=== PATIENT | male | born 1975 | race Hispanic/Latino ===

== ENCOUNTER 2016-12-12 21:09 | Emergency (ER) | payer MEDICAID ==
[2016-12-12 21:10] VITALS: BMI 37.3
[2016-12-12 21:23] VITALS: BP 135/89; PULSE 101; RESP 16; TEMP 98.1; O2SAT 98
[2016-12-12] MEDS ORDERED: Naproxen 550 mg Tab PO STA (22:09)
--- NOTE | 2016-12-12 22:26 | ED PDOC ---
Arrival/HPI - General Chief Complaint: Lower Extremity Problem/Injury Time Seen by Provider: 12/12/16 21:27 Historian: Patient - History of Present Illness Narrative History of Present Illness (Text): 12/12/16 22:06 41 year old male, with no significant past medical history, who presents to the Emergency department complaining of atraumatic right foot pain to the bottom of his foot. Patient states pain is worse with walking or bearing weight on the extremity. Patient states he has not experienced similar pain previously. Patient denies any fever, chills, joint pain, numbness/weakness/tingling in the extremity, back pain, neck pain, headache, dizziness, or any other complaints. PMD [place] Symptom Onset: Gradual Symptom Course: Unchanged Activities at Onset: Light Context: Standing, Walking, Home Past Medical History - Provider Review Nursing Documentation Reviewed: Yes - Infectious Disease Hx of Infectious Diseases: None - Past Medical History Past Medical History: No Previous - Cardiac Hx Pacemaker: No - Pulmonary Hx Respiratory Disorders: Yes Hx Bronchitis: Yes Hx Pneumonia: Yes - Neurological Hx Paralysis: No - HEENT Hx HEENT Disorder: No - Renal Hx Renal Disorder: No - Endocrine/Metabolic Hx Endocrine Disorders: No - Hematological/Oncological Hx Blood Transfusions: No Hx Blood Transfusion Reaction: No - Integumentary Hx Dermatological Disorder: No - Musculoskeletal/Rheumatological Hx Musculoskeletal Disorders: Yes - Gastrointestinal Hx Gastrointestinal Disorders: Yes (PERIRECTAL ABSCESS) Other/Comment: Gallstones - Genitourinary/Gynecological Hx Genitourinary Disorders: No - Psychiatric Hx Emotional Abuse: No Hx Physical Abuse: No Hx Substance Use: No - Past Surgical History Past Surgical History: No Previous - Surgical History Other/Comment: anal fistula/fissure repair - Anesthesia Hx Anesthesia Reactions: No Hx Malignant Hyperthermia: No - Suicidal Assessment Feels Threatened In Home Enviroment: No Family/Social History - Physician Review Nursing Documentation Reviewed: Yes Family/Social History: Unknown Family HX Smoking Status: Never Smoked Hx Alcohol Use: No Hx Substance Use: No Hx Substance Use Treatment: No Allergies/Home Meds Allergies/Adverse Reactions: Allergies shrimp Allergy (Intermediate, Verified 07/20/16 12:46) RASH SEASONAL Allergy (Intermediate, Uncoded 07/20/16 12:46) UNKNOWN PT RECENTLY HAD ALLERGY TESTING- SHOWWED MULTIPLE REACTIONS TO MOLD, TREES Review of Systems - Physician Review All systems were reviewed & negative as marked: Yes - Review of Systems Constitutional: Normal. absent: Fevers Eyes: Normal ENT: Normal Respiratory: Normal. absent: SOB, Cough Cardiovascular: Normal. absent: Chest Pain Gastrointestinal: Normal. absent: Abdominal Pain, Diarrhea, Nausea, Vomiting Genitourinary Male: Normal. absent: Dysuria, Frequency, Hematuria, Urinary Output Changes Musculoskeletal: Other (+right foot pain). absent: Arthralgias, Back Pain, Neck Pain Skin: Normal. absent: Rash Neurological: Normal. absent: Headache, Dizziness Endocrine: Normal Hemo/Lymphatic: Normal Psychiatric: Normal Physical Exam Vital Signs Reviewed: Yes Vital Signs Temp Pulse Resp BP Pulse Ox 12/12/16 21:22 98.1 F 101 H 16 135/89 98 Temperature: Afebrile Blood Pressure: Normal Pulse: Regular Respiratory Rate: Normal Appearance: Positive for: Well-Appearing, Non-Toxic, Comfortable Pain Distress: None Mental Status: Positive for: Alert and Oriented X 3 - Systems Exam Head: Present: Atraumatic, Normocephalic Pupils: Present: PERRL Extroacular Muscles: Present: EOMI Conjunctiva: Present: Normal Mouth: Present: Moist Mucous Membranes Lower Extremity: Present: NORMAL PULSES, Normal ROM, Tenderness, Neurovascularly Intact (Tenderness to plantar aspect of right foot), Capillary Refill < 2 s. No: Edema, Swelling, Erythema, Deformity Neurological: Present: GCS=15, CN II-XII Intact, Speech Normal Skin: Present: Warm, Dry, Normal Color. No: Rashes Psychiatric: Present: Alert, Oriented x 3, Normal Insight, Normal Concentration Medical Decision Making ED Course and Treatment: 12/12/16 22:06 Impression: 41 year old male complaining of right foot pain to plantar aspect. Differential Diagnosis included but are not limited to: plantar fasciitis vs. tendonitis vs. gout Plan: -- Naproxen -- XR Right Foot -- Reassess and disposition Progress Notes: XR right foot: +heel spur, +faint soft tissue swelling to the plantar aspect of the foot and the ankle, no fracture, no dislocation, as read by PA Patient advised that official radiology read of XR is still pending and will call the patient if there is any discrepancy within 24 hours. X-ray results reviewed and discussed with the patient in great detail. Patient advised of likely diagnosis of plantar fasciitis and the need for follow-up with a transitional living specialist. Advised to rest affected foot, elevate and apply ice. Otherwise instructed to follow up with podiatry referral in 1-2 days without fail. Advised to take medication as prescribed. Return to the emergency room at any time for any new or worsening symptoms. Patient states he fully agrees with and understands discharge instructions. States that he agrees with the plan and disposition. Verbalized and repeated discharge instructions and plan. I have given the patient opportunity to ask any additional questions. - RAD Interpretation Radiology Orders: 12/12/16 22:09 FOOT RIGHT 3 VIEWS ROUTINE [RAD] Stat - Medication Orders Current Medication Orders: Discontinued Medications Naproxen (Anaprox Ds) 550 mg PO ONCE STA Stop: 12/12/16 22:10 Last Admin: 12/12/16 22:31 Dose: 550 mg - PA / DISPATCHER ELECTRIC POWER / Resident Statement MD/DO has reviewed & agrees with the documentation as recorded. - Scribe Statement The provider has reviewed the documentation as recorded by the Scribe Opal Mcgarry All medical record entries made by the Scribe were at my direction and personally dictated by me. I have reviewed the chart and agree that the record accurately reflects my personal performance of the history, physical exam, medical decision making, and the department course for this patient. I have also personally directed, reviewed, and agree with the discharge instructions and disposition. Disposition/Present on Arrival - Present on Arrival Any Indicators Present on Arrival: No History of DVT/PE: No History of Uncontrolled Diabetes: No Urinary Catheter: No History of Decub. Ulcer: No History Surgical Site Infection Following: None - Disposition Have Diagnosis and Disposition been Completed?: Yes Diagnosis: Foot pain, right, Plantar fasciitis of right foot Disposition: HOME/ ROUTINE Disposition Time: 23:00 Patient Plan: Discharge Patient Problems: Current Active Problems Problem Status Onset Foot pain, right Acute Plantar fasciitis of right foot Acute Condition: STABLE Discharge Instructions (ExitCare): Plantar Fasciitis (ED) Print Language: BULGARIAN Additional Instructions: Thank you for letting us take care of you today. You were treated for right foot pain, plantar fasciitis. The emergency medical care you received today was directed at your acute symptoms. If you were prescribed any medication, please fill it and take as directed. It may take several days for your symptoms to resolve. Return to the Emergency Department if your symptoms worsen, do not improve, or if you have any other problems. Please contact your doctor in 2 days for re-evaluation and follow up / or call one of the physicians/clinics you have been referred to that are listed on the Patient Visit Information form that is included in your discharge packet. Bring any paperwork you were given at discharge with you along with any medications you are taking to your follow up visit. Our treatment cannot replace ongoing medical care by a primary care provider (PCP) outside of the emergency department. Thank you for allowing the [facility] team to be part of your care today. Prescriptions: Naproxen 500 mg PO BID #30 tab Referrals: Loulou Traylor MD [Primary Care Provider] - Follow up with primary Forms: [employer] (Pakistani)
--- NOTE | 2016-12-13 12:23 | RAD ---
PROCEDURE: Right Foot Radiographs. HISTORY: pain COMPARISON: None. FINDINGS: BONES: Normal. No fracture. JOINTS: Normal. SOFT TISSUES: Normal. OTHER FINDINGS: None. IMPRESSION: Normal right foot radiographs.
== END 2016-12-12 23:34 | disposition home or self-care (01) ==
LOC: ED 21:09
DX: M72.2 Plantar fascial fibromatosis (principal); M79.671 Pain in right foot

== ENCOUNTER 2017-08-18 08:49 | Emergency (ER) | payer MEDICAID ==
[2017-08-18 09:34] VITALS: BMI 36.2
[2017-08-18] MEDS ORDERED: Sodium Chloride 0.9% 1,000 ML IV STA (10:03)
[2017-08-18 10:49] LABS: BASO # 0.03 K/mm3 (0.0-2.0); BASO % 0.5 % (0.0-3.0); EOS # 0.1 (0.0-0.7); GRAN # 3.16 (1.4-6.5); GRAN % 49.5 % (50.0-68.0); HEMOGLOBIN 15.5 g/dL (14.0-18.0); LYMPH # 2.4 (1.2-3.4); LYMPH % 37.5 % (22.0-35.0); MEAN CELL VOLUME 87.2 fl (80.0-105.0); MEAN CORPUSCULAR HEMOGLOBIN 31.4 pg (25.0-35.0); MEAN PLATELET VOLUME 9.7 fl (7.0-11.0); MONO # 0.7 (0.1-0.6); MONO % 10.5 % (1.0-6.0); PH,URINE 5.5 (4.7-8.0); RBC 4.94 10^6/uL (3.5-6.1); RED CELL DISTRIBUTION WIDTH 13.5 % (11.5-14.5); URINE BILIRUBIN NEGATIVE (NEGATIVE); URINE BLOOD NEGATIVE (NEGATIVE); URINE GLUCOSE (UA) NEGATIVE (NEGATIVE); URINE LEUKOCYTE ESTERASE NEGATIVE Leu/uL (NEGATIVE); URINE PROTEIN NEGATIVE mg/dL (<30 mg/dL); URINE UROBILINOGEN 0.2 E.U./dL (<1 E.U./dL); WHITE BLOOD COUNT 6.4 10^3/ul (4.5-11.0)
[2017-08-18 10:57] LABS: ALB/GLOB RATIO 1.4 (1.1-1.8); ALBUMIN 4.6 g/dL (3.0-4.8); ALT/SGPT 101 U/L (7-56); AST/SGOT 43 U/L (17-59); BLOOD UREA NITROGEN 20 mg/dL (7-21); CALCIUM 10.4 mg/dL (8.4-10.5); GFR AFRICAN-AMERICAN > 60; GFR NON-AFRICAN AMERICAN > 60; LIPASE 64 U/L (23-300)
[2017-08-18 11:03] LABS: URINE APPEARANCE CLEAR (CLEAR); URINE COLOR YELLOW (YELLOW)
--- NOTE | 2017-08-18 12:17 | CT ---
PROCEDURE: CT Abdomen and Pelvis with contrast HISTORY: Right-sided abdominal pain, 2 weeks duration. COMPARISON: None TECHNIQUE: Contrast dose: 150 cc Omnipaque 350. Radiation dose: Total exam DLP = 1184.53 mGy-cm. This CT exam was performed using one or more of the following dose reduction techniques: Automated exposure control, adjustment of the mA and/or kV according to patient size, and/or use of iterative reconstruction technique. FINDINGS: LOWER THORAX: Unremarkable. LIVER: Hepatic steatosis. No focal masses. No intrahepatic bile duct dilatation or perihepatic ascites. GALLBLADDER AND BILE DUCTS: Unremarkable. PANCREAS: Unremarkable. No gross lesion or ductal dilatation. SPLEEN: Splenomegaly. Orthogonal measurements 7.1 x 13.9 cm. ADRENALS: Unremarkable. No mass. KIDNEYS AND URETERS: Unremarkable. No hydronephrosis. No solid mass. VASCULATURE: Unremarkable. No aortic aneurysm. BOWEL: Unremarkable. No obstruction. No gross mural thickening. APPENDIX: Normal appendix. PERITONEUM: Unremarkable. No free fluid. No free air. LYMPH NODES: Unremarkable. No enlarged lymph nodes. BLADDER: Unremarkable. REPRODUCTIVE: Unremarkable. BONES: No acute fracture. OTHER FINDINGS: None. IMPRESSION: No significant or acute findings to account for/ related to the clinical presentation. Additional benign and/or incidental findings described above.
--- NOTE | 2017-08-18 15:20 | US ---
HISTORY: right sided testicular pain TECHNIQUE: Realtime sonography through the scrotum with color and doppler flow. COMPARISON: None Available. FINDINGS: RIGHT TESTICLE: Measures 2.6 x 3.2 x 5.1 cm. Normal echotexture and flow. RIGHT EPIDIDYMIS: Epididymal head measures 1.2 x 1.2 cm. Right epididymal tubular structure likely a cyst 1 x 1.2 by 2.1 cm LEFT TESTICLE: Measures 2.6 x 3.1 x 5.2 cm. Normal echotexture and flow. LEFT EPIDIDYMIS: Epididymal head measures 1.2 x 1.1 cm. Tubular structure in the body of the left epididymis 0.9 x 3.6 cm HYDROCELE: None. VARICOCELE: Unilateral, left. OTHER FINDINGS: None. IMPRESSION: Negative study for epididymitis, orchitis or torsion. Bilateral tubular epididymal cysts.
--- NOTE | 2017-08-18 15:52 | ED PDOC ---
Arrival/HPI - General Chief Complaint: Male Genitourinary Time Seen by Provider: 08/18/17 10:01 Historian: Patient - History of Present Illness Narrative History of Present Illness (Text): 08/18/17 15:47 41yr old male presents today with a 2 week history of right-sided groin pain radiating into the abdomen. Patient states pain started approximately 2 weeks ago when he got home from work. Patient denies nausea/vomiting or diarrhea. pt denies cp or sob. pt states he does heavy lifting at work and is worried about hernia. pt states he has noticed that he has been having harder bowel movements. pt denies dysuria. denies urinary frequency. pt denies back pain. pt states pain starts deep around the right testicle and radiates to the right upper abdomen. pt states pain only occurs with movement. pt states while at rest he has no pain. no fever/chills. no other complaints. Past Medical History - Provider Review Nursing Documentation Reviewed: Yes - Travel History Have you recently traveled outside [place] w/in the past 3 mons?: No - Infectious Disease Hx of Infectious Diseases: None - Past Medical History Past Medical History: No Previous - Cardiac Hx Cardiac Disorders: No Hx Pacemaker: No - Pulmonary Hx Respiratory Disorders: Yes Hx Bronchitis: Yes Hx Pneumonia: Yes - Neurological Hx Neurological Disorder: No - HEENT Hx HEENT Disorder: No - Renal Hx Renal Disorder: No - Endocrine/Metabolic Hx Endocrine Disorders: No - Hematological/Oncological Hx Blood Disorders: No - Integumentary Hx Dermatological Disorder: No - Musculoskeletal/Rheumatological Hx Musculoskeletal Disorders: Yes - Gastrointestinal Hx Gastrointestinal Disorders: Yes (PERIRECTAL ABSCESS) Other/Comment: Gallstones - Genitourinary/Gynecological Hx Genitourinary Disorders: No - Psychiatric Hx Psychophysiologic Disorder: No Hx Substance Use: No - Past Surgical History Past Surgical History: No Previous - Surgical History Other/Comment: anal fistula/fissure repair - Anesthesia Hx Anesthesia Reactions: No Hx Malignant Hyperthermia: No - Suicidal Assessment Feels Threatened In Home Enviroment: No Family/Social History - Physician Review Nursing Documentation Reviewed: Yes Family/Social History: Unknown Family HX Smoking Status: Never Smoked Hx Alcohol Use: No Hx Substance Use: No Hx Substance Use Treatment: No Allergies/Home Meds Allergies/Adverse Reactions: Allergies shrimp Allergy (Intermediate, Verified 08/18/17 09:45) RASH SEASONAL Allergy (Intermediate, Uncoded 08/18/17 09:45) UNKNOWN PT RECENTLY HAD ALLERGY TESTING- SHOWWED MULTIPLE REACTIONS TO MOLD, TREES Review of Systems - Review of Systems Constitutional: absent: Fatigue, Fevers Respiratory: absent: SOB, Cough Cardiovascular: absent: Chest Pain, Palpitations Gastrointestinal: Abdominal Pain. absent: Constipation, Diarrhea, Nausea, Vomiting Genitourinary Male: Other (right sided testicular pain). absent: Dysuria, Frequency, Hematuria Musculoskeletal: absent: Arthralgias, Back Pain, Neck Pain Skin: absent: Rash, Pruritis Neurological: absent: Headache, Dizziness Psychiatric: absent: Anxiety, Depression, Suicidal Ideation Physical Exam Vital Signs Reviewed: Yes Vital Signs Temp Pulse Resp BP Pulse Ox 08/18/17 16:02 98 F 77 18 138/65 98 08/18/17 14:09 70 16 122/71 99 08/18/17 12:00 70 16 125/83 100 08/18/17 09:33 99.5 F 78 18 148/97 H 97 Temperature: Afebrile Blood Pressure: Hypertensive Pulse: Regular Respiratory Rate: Normal Appearance: Positive for: Well-Appearing, Non-Toxic, Comfortable Pain Distress: None Mental Status: Positive for: Alert and Oriented X 3 - Systems Exam Head: Present: Atraumatic Mouth: Present: Moist Mucous Membranes Neck: Present: Normal Range of Motion Respiratory/Chest: Present: Clear to Auscultation, Good Air Exchange. No: Respiratory Distress, Accessory Muscle Use Cardiovascular: Present: Regular Rate and Rhythm, Normal S1, S2. No: Murmurs Abdomen: Present: Tenderness (+ right lower abdominal tenderness; ). No: Distention, Peritoneal Signs, Rebound, Guarding, Hernias Genitourinary Male: Present: Normal External Genitalia, Circumcised Penis, Testicle Tenderness (minimal right sided tenderness), Other (chaparoned by ned pickard RN. ). No: Lesions, Penile Discharge, Penile Swelling, Masses, Erythema, Hernias, Testicle Swelling Back: Present: Normal Inspection. No: CVA Tenderness, Midline Tenderness, Paraspinal Tenderness Upper Extremity: Present: Normal ROM Lower Extremity: Present: Normal Inspection Neurological: Present: GCS=15, Speech Normal Skin: Present: Warm, Dry, Normal Color. No: Rashes Psychiatric: Present: Alert, Oriented x 3 Medical Decision Making ED Course and Treatment: 08/18/17 15:54 Patient is nontoxic well appearing with stable vital signs presenting with 2 week history of right sided abdominal pain CBC wnl CMP wnl Lipase wnl Urinalysis: wnl Ultrasound testicular:FINDINGS: RIGHT TESTICLE: Measures 2.6 x 3.2 x 5.1 cm. Normal echotexture and flow. RIGHT EPIDIDYMIS: Epididymal head measures 1.2 x 1.2 cm. Right epididymal tubular structure likely a cyst 1 x 1.2 by 2.1 cm LEFT TESTICLE: Measures 2.6 x 3.1 x 5.2 cm. Normal echotexture and flow. LEFT EPIDIDYMIS: Epididymal head measures 1.2 x 1.1 cm. Tubular structure in the body of the left epididymis 0.9 x 3.6 cm HYDROCELE: None. VARICOCELE: Unilateral, left. OTHER FINDINGS: None. IMPRESSION: Negative study for epididymitis, orchitis or torsion. Bilateral tubular epididymal cysts. CAT scan:FINDINGS: LOWER THORAX: Unremarkable. LIVER: Hepatic steatosis. No focal masses. No intrahepatic bile duct dilatation or perihepatic ascites. GALLBLADDER AND BILE DUCTS: Unremarkable. PANCREAS: Unremarkable. No gross lesion or ductal dilatation. SPLEEN: Splenomegaly. Orthogonal measurements 7.1 x 13.9 cm. ADRENALS: Unremarkable. No mass. KIDNEYS AND URETERS: Unremarkable. No hydronephrosis. No solid mass. VASCULATURE: Unremarkable. No aortic aneurysm. BOWEL: Unremarkable. No obstruction. No gross mural thickening. APPENDIX: Normal appendix. PERITONEUM: Unremarkable. No free fluid. No free air. LYMPH NODES: Unremarkable. No enlarged lymph nodes. BLADDER: Unremarkable. REPRODUCTIVE: Unremarkable. BONES: No acute fracture. OTHER FINDINGS: None. IMPRESSION: No significant or acute findings to account for/ related to the clinical presentation. Additional benign and/or incidental findings described above. Patient reassessment: pt denies any pain at rest; abdomen is non tender; i discussed all results in depth with patient; advised f/u with pmd and GI specialist. i advised f/u with urologist. i advised immediate return if symptoms worsen,persist or if new symptoms develop. Patient verbalizes understanding of discharge instructions and need for immediate followup. all aspects of this case were discussed the attending of record. Impression: Abdominal pain, groin pain Motrin every 6 hours as needed for pain Flexeril 1 tablet every 8 hours as needed for muscle spasms; may cause drowsiness. Follow up with the GI specialist within the next 2 days. Follow up with the urologist within the next 2 days. Follow up with primary care physician within the next 2 days Return immediately if symptoms worsen persist or if new symptoms develop: High fevers, increasing pain, vomiting, diarrhea or any other concerning symptoms develop - Lab Interpretations Lab Results: 08/18/17 10:30 08/18/17 10:30 Lab Results 08/18/17 10:30: WBC 6.4, RBC 4.94, Hgb 15.5, Hct 43.1, MCV 87.2, MCH 31.4, MCHC 36.0, RDW 13.5, Plt Count 226, MPV 9.7, Gran % 49.5 L, Lymph % (Auto) 37.5 H, [place] % (Auto) 10.5 H, Eos % (Auto) 2.0, Baso % (Auto) 0.5, Gran # 3.16, Lymph # (Auto) 2.4, [place] # (Auto) 0.7 H, Eos # (Auto) 0.1, Baso # (Auto) 0.03 08/18/17 10:30: Sodium 140, Potassium 4.3, Chloride 105, Carbon Dioxide 24, Anion Gap 15, BUN 20, Creatinine 0.7 L, Est GFR ( Amer) > 60, Est GFR ( Non-Af Amer) > 60, Random Glucose 104, Calcium 10.4, Total Bilirubin 0.5, AST 43 , ALT 101 H, Alkaline Phosphatase 86, Total Protein 7.8, Albumin 4.6, Globulin 3.2, Albumin/Globulin Ratio 1.4, Lipase 64 08/18/17 10:30: Urine Color Yellow, Urine Appearance Clear, Urine pH 5.5, Ur Specific [place] >= 1.030, Urine Protein Negative, Urine Glucose (UA) Negative, Urine Ketones Negative, Urine Blood Negative, Urine Nitrate Negative, Urine Bilirubin Negative, Urine Urobilinogen 0.2, Ur Leukocyte Esterase Negative - RAD Interpretation Radiology Orders: 08/18/17 10:50 ABD & PELVIS IV CONTRAST ONLY [CT] Stat 08/18/17 14:15 TESTES DUPLEX COMPLETE [US] Stat - Medication Orders Current Medication Orders: Discontinued Medications Sodium Chloride (Sodium Chloride 0.9%) 1,000 mls @ 999 mls/hr IV .Q1H1M STA Stop: 08/18/17 11:03 Last Admin: 08/18/17 10:34 Dose: 999 mls/hr eMAR Start Stop Document 08/18/17 10:34 DASH (Rec: 08/18/17 10:36 DASH [id number]) Intravenous Solution Start Date 08/18/17 Start Time 10:35 End Date 08/18/17 End time 11:35 Total Infusion Time 60 Ketorolac Tromethamine (Toradol) 30 mg IVP STAT STA Stop: 08/18/17 10:52 Last Admin: 08/18/17 12:15 Dose: 30 mg MAR Pain Assessment Document 08/18/17 12:15 DASH (Rec: 08/18/17 12:15 DASH [id number]) Pain Reassessment Is this a pain reassessment? Yes Presence of Pain Presence of Pain Yes Pain Scale Used Pain Scale Used Numeric Location Left, Right or Bilateral Right Pain Location Body Site Groin Description Intensity of Pain at present 6 IVP Administration Document 08/18/17 12:15 DASH (Rec: 08/18/17 12:15 DASH [id number]) Charges for Administration # of IVP Administrations 1 Disposition/Present on Arrival - Present on Arrival Any Indicators Present on Arrival: No History of DVT/PE: No History of Uncontrolled Diabetes: No Urinary Catheter: No History of Decub. Ulcer: No History Surgical Site Infection Following: None - Disposition Have Diagnosis and Disposition been Completed?: Yes Diagnosis: Abdominal pain, Epididymal cyst, Hepatic steatosis, Splenomegaly Disposition: HOME/ ROUTINE Disposition Time: 16:01 Patient Plan: Discharge Condition: GOOD Discharge Instructions (ExitCare): Acute Abdomen (Belly Pain) Additional Instructions: Motrin every 6 hours as needed for pain Flexeril 1 tablet every 8 hours as needed for muscle spasms; may cause drowsiness. Follow up with the GI specialist within the next 2 days. Follow up with the urologist within the next 2 days. Follow up with primary care physician within the next 2 days Return immediately if symptoms worsen persist or if new symptoms develop: High fevers, increasing pain, vomiting, diarrhea or any other concerning symptoms develop Prescriptions: Cyclobenzaprine [Cyclobenzaprine HCl] 10 mg PO Q8 #10 tab Ibuprofen [Motrin] 600 mg PO Q6H PRN #20 tab PRN Reason: pain/fever reduction Referrals: Real,Bao S, DO [Staff Provider] - Follow up with primary Alex Bucio MD [Staff Provider] - Follow up with primary Francisco Villarreal MD [Staff Provider] - Follow up with primary Deidra Jasso MD [Medical Doctor] - Follow up with primary Forms: [employer] (Lithuanian)
[2017-08-18 16:03] VITALS: BP 138/65; PULSE 77; RESP 18; TEMP 98; O2SAT 98
== END 2017-08-18 16:25 | disposition home or self-care (01) ==
LOC: ED 08:49
DX: N50.3 Cyst of epididymis (principal); R16.1 Splenomegaly, not elsewhere classified; K76.0 Fatty (change of) liver, not elsewhere classified; R10.9 Unspecified abdominal pain
CPT/HCPCS: 74177; 80053; 81003; 83690; 85025; 93975; 96361; 96374; 99285; J1885; J7040; Q9967